=== PATIENT | male | born 1985 | race Caucasian/White ===

== ENCOUNTER → 2016-10-19 | Outpatient (REF) | payer OTHER | END | disposition home or self-care (01) | LOC: M LAB REF 13:07 | PROVIDERS: ATTEND Internal Medicine | DX: E83.110 Hereditary hemochromatosis (principal) ==

== ENCOUNTER → 2017-10-24 | Outpatient (REF) | payer OTHER ==
[2017-10-24 14:44] LABS: IRON (FE) 115 UG/DL (65-175); PERCENT SATURATION 49.6 % (19.7-50.0); TOTAL IRON BINDING CAPACITY 232 UG/DL (250-450)
== END ==
LOC: M LAB REF 13:45
DX: Z14.8 Genetic carrier of other disease (principal); Z00.01 Encounter for general adult medical examination with abnormal findings

== ENCOUNTER → 2018-10-10 | Outpatient (REF) | payer OTHER ==
[2018-10-10 12:52] LABS: PERCENT SATURATION 47.5 % (19.7-50.0)
== END ==
LOC: M LAB REF 12:10
PROVIDERS: ATTEND Internal Medicine
DX: E83.110 Hereditary hemochromatosis (principal)

== ENCOUNTER → 2019-10-09 | Outpatient (REF) | payer OTHER ==
[2019-10-09 12:58] LABS: PERCENT SATURATION 36.7 % (19.7-50.0)
== END ==
LOC: M LAB REF 11:54
PROVIDERS: ATTEND Internal Medicine
DX: E83.110 Hereditary hemochromatosis (principal)

== ENCOUNTER → 2020-10-17 | Outpatient (REF) | payer OTHER ==
[2020-10-17 13:34] LABS: PERCENT SATURATION 55.1 % (19.7-50.0)
== END ==
LOC: M LAB REF 12:36
PROVIDERS: ATTEND Internal Medicine
DX: E83.110 Hereditary hemochromatosis (principal)

== ENCOUNTER → 2021-11-30 | Outpatient (REF) | payer OTHER ==
[2021-11-30 14:24] LABS: PERCENT SATURATION 66.5 % (19.7-50.0)
== END ==
LOC: M LAB REF 12:18
PROVIDERS: ATTEND Internal Medicine
DX: E83.110 Hereditary hemochromatosis (principal)

== ENCOUNTER → 2022-11-30 | Outpatient (REF) | payer OTHER ==
[2022-11-30 13:00] LABS: PERCENT SATURATION 34.8 % (19.7-50.0)
[2022-11-30 13:02] LABS: FERRITIN 385.2 NG/ML (10.5-307.3)
== END ==
LOC: M LAB REF 12:04
PROVIDERS: ATTEND Internal Medicine
DX: E83.110 Hereditary hemochromatosis (principal)

== ENCOUNTER 2022-12-06 08:50 | Outpatient (CLI) | payer OTHER ==
[~2022-12-06] VITALS: Ht 182.9 cm; Wt 84.1 kg
[2022-12-06 09:17] VITALS: BP 128/82
[2022-12-06 09:29] LABS: HEMATOCRIT 44.8 % (42.0-52.0); HEMOGLOBIN 14.7 g/dl (13.5-17.5); MEAN CORPUSCULAR HEMOGLOBIN 30.4 pg (27.0-33.0); MEAN CORPUSCULAR HGB CONC 32.8 g/dl (32.0-36.5); MEAN CORPUSCULAR VOLUME 92.6 fl (80.0-96.0); PLATELET COUNT, AUTOMATED 177 10^3/uL (150-450); RED BLOOD COUNT 4.84 10^6/uL (4.30-6.10); WHITE BLOOD COUNT 5.3 10^3/uL (4.0-10.0)
[2022-12-06 10:00] VITALS: BP 120/76
== END 2022-12-06 09:15 | disposition home or self-care (01) ==
LOC: M INFU 08:50
PROVIDERS: ATTEND Internal Medicine
DX: E83.119 Hemochromatosis, unspecified (principal)

== ENCOUNTER → 2023-08-19 | Outpatient (CLI) | payer OTHER ==
[2023-08-19 11:14] LABS: HEMATOCRIT 45.9 % (42.0-52.0); HEMOGLOBIN 15.4 g/dl (13.5-17.5); MEAN CORPUSCULAR HEMOGLOBIN 30.9 pg (27.0-33.0); MEAN CORPUSCULAR HGB CONC 33.6 g/dl (32.0-36.5); MEAN CORPUSCULAR VOLUME 92.2 fl (80.0-96.0); PLATELET COUNT, AUTOMATED 192 10^3/uL (150-450); RED BLOOD COUNT 4.98 10^6/uL (4.30-6.10); WHITE BLOOD COUNT 5.8 10^3/uL (4.0-10.0)
[2023-08-19 12:04] LABS: ALBUMIN 4.1 G/DL (3.2-5.2); BILIRUBIN,DIRECT 0.2 MG/DL (<0.4); BILIRUBIN,TOTAL 0.9 MG/DL (0.3-1.2); FERRITIN 450.3 NG/ML (10.5-307.3); PERCENT SATURATION 34.6 % (19.7-50.0)
== END ==
LOC: M WUC 08:26
PROVIDERS: ATTEND Internal Medicine Gastroenterology
DX: R79.89 Other specified abnormal findings of blood chemistry (principal); Z14.8 Genetic carrier of other disease

== ENCOUNTER → 2023-10-21 | Outpatient (REF) | payer OTHER | LOC: M LAB REF 12:45 | PROVIDERS: ATTEND Internal Medicine | DX: E83.110 Hereditary hemochromatosis (principal) ==

== ENCOUNTER → 2023-11-21 | Outpatient (CLI) | payer OTHER ==
[~2023-11-21] VITALS: Ht 185.4 cm; Wt 81.8 kg
[2023-11-21 07:56] VITALS: BP 169/88; O2SAT 98
[2023-11-21 07:59] LABS: HEMATOCRIT 45.2 % (42.0-52.0); HEMOGLOBIN 15.3 g/dl (13.5-17.5); MEAN CORPUSCULAR HEMOGLOBIN 30.5 pg (27.0-33.0); MEAN CORPUSCULAR HGB CONC 33.8 g/dl (32.0-36.5); PLATELET COUNT, AUTOMATED 234 10^3/uL (150-450); RED BLOOD COUNT 5.02 10^6/uL (4.30-6.10); WHITE BLOOD COUNT 6.3 10^3/uL (4.0-10.0)
[2023-11-21 08:40] VITALS: BP 134/77; O2SAT 98
== END ==
LOC: M INFU 07:33
PROVIDERS: ATTEND Internal Medicine
DX: E83.119 Hemochromatosis, unspecified (principal)

== ENCOUNTER 2023-11-28 07:40 | Outpatient (CLI) | payer OTHER ==
[~2023-11-28] VITALS: Ht 182.9 cm; Wt 94.5 kg
[2023-11-28 07:52] LABS: HEMATOCRIT 42.2 % (42.0-52.0); HEMOGLOBIN 14.4 g/dl (13.5-17.5); MEAN CORPUSCULAR HEMOGLOBIN 31.1 pg (27.0-33.0); MEAN CORPUSCULAR HGB CONC 34.1 g/dl (32.0-36.5); MEAN CORPUSCULAR VOLUME 91.1 fl (80.0-96.0); PLATELET COUNT, AUTOMATED 216 10^3/uL (150-450); RED BLOOD COUNT 4.63 10^6/uL (4.30-6.10); WHITE BLOOD COUNT 5.5 10^3/uL (4.0-10.0)
[2023-11-28 07:54] VITALS: BP 140/78; O2SAT 98
[2023-11-28 08:20] VITALS: BP 127/76; O2SAT 97
== END 2023-11-28 08:15 ==
LOC: M INFU 07:40
PROVIDERS: ATTEND Internal Medicine
DX: E83.110 Hereditary hemochromatosis (principal)

== ENCOUNTER 2023-12-05 07:30 | Outpatient (CLI) | payer OTHER ==
[~2023-12-05] VITALS: Ht 185.4 cm; Wt 82.0 kg
[2023-12-05 07:39] VITALS: BP 160/87; O2SAT 98
[2023-12-05 07:48] LABS: HEMATOCRIT 41.2 % (42.0-52.0); MEAN CORPUSCULAR HEMOGLOBIN 31.4 pg (27.0-33.0); MEAN CORPUSCULAR VOLUME 92.4 fl (80.0-96.0); PLATELET COUNT, AUTOMATED 230 10^3/uL (150-450); RED BLOOD COUNT 4.46 10^6/uL (4.30-6.10); WHITE BLOOD COUNT 5.4 10^3/uL (4.0-10.0)
[2023-12-05 08:25] VITALS: BP 104/59; O2SAT 97
== END 2023-12-05 08:25 | disposition home or self-care (01) ==
LOC: M INFU 07:30
PROVIDERS: ATTEND Internal Medicine
DX: E83.110 Hereditary hemochromatosis (principal)

== ENCOUNTER → 2023-12-06 | Outpatient (REF) | payer OTHER ==
[2023-12-06 12:14] LABS: PERCENT SATURATION 22.1 % (19.7-50.0)
[2023-12-06 12:18] LABS: FERRITIN 260.3 NG/ML (10.5-307.3)
== END ==
LOC: M LAB REF 11:25
PROVIDERS: ATTEND Internal Medicine
DX: E83.110 Hereditary hemochromatosis (principal)

== ENCOUNTER 2023-12-12 07:16 | Outpatient (CLI) | payer OTHER ==
[~2023-12-12] VITALS: Ht 182.9 cm; Wt 84.1 kg
[2023-12-12 07:16] VITALS: BP 144/76; O2SAT 97
[2023-12-12 07:19] LABS: HEMATOCRIT 40.7 % (42.0-52.0); HEMOGLOBIN 13.6 g/dl (13.5-17.5); MEAN CORPUSCULAR HEMOGLOBIN 31.2 pg (27.0-33.0); MEAN CORPUSCULAR HGB CONC 33.4 g/dl (32.0-36.5); MEAN CORPUSCULAR VOLUME 93.3 fl (80.0-96.0); PLATELET COUNT, AUTOMATED 177 10^3/uL (150-450); RED BLOOD COUNT 4.36 10^6/uL (4.30-6.10); WHITE BLOOD COUNT 4.6 10^3/uL (4.0-10.0)
[2023-12-12 08:00] VITALS: BP 133/81; O2SAT 97
== END 2023-12-12 08:00 | disposition home or self-care (01) ==
LOC: M INFU 07:16
PROVIDERS: ATTEND Internal Medicine
DX: E83.110 Hereditary hemochromatosis (principal)

== ENCOUNTER → 2023-12-19 | Outpatient (REF) | payer OTHER | LOC: M LAB REF 11:49 | PROVIDERS: ATTEND Internal Medicine | DX: E83.110 Hereditary hemochromatosis (principal) ==

== ENCOUNTER → 2024-03-13 | Outpatient (REF) | payer OTHER ==
[2024-03-13 12:35] LABS: PERCENT SATURATION 27.5 % (19.7-50.0)
[2024-03-13 12:37] LABS: FERRITIN 186.1 NG/ML (10.5-307.3)
== END ==
LOC: M LAB REF 12:00
PROVIDERS: ATTEND Internal Medicine
DX: E83.110 Hereditary hemochromatosis (principal); R79.89 Other specified abnormal findings of blood chemistry

== ENCOUNTER → 2024-06-10 | Outpatient (REF) | payer OTHER ==
[2024-06-10 13:43] LABS: PERCENT SATURATION 34.2 % (19.7-50.0)
[2024-06-10 13:47] LABS: FERRITIN 320.2 NG/ML (10.5-307.3)
== END ==
LOC: M LAB REF 12:58
PROVIDERS: ATTEND Internal Medicine
DX: E83.110 Hereditary hemochromatosis (principal)

== ENCOUNTER → 2024-08-12 | Outpatient (REF) | payer OTHER ==
[2024-08-12 13:09] LABS: PERCENT SATURATION 58.8 % (19.7-50.0)
[2024-08-12 13:11] LABS: FERRITIN 313.3 NG/ML (10.5-307.3)
== END ==
LOC: M LAB REF 12:17
PROVIDERS: ATTEND Internal Medicine
DX: E83.110 Hereditary hemochromatosis (principal)

== ENCOUNTER → 2024-12-10 | Outpatient (REF) | payer OTHER ==
[2024-12-10 13:00] LABS: PERCENT SATURATION 53.6 % (19.7-50.0)
[2024-12-10 13:02] LABS: FERRITIN 265.8 NG/ML (10.5-307.3)
== END ==
LOC: M LAB REF 12:12
PROVIDERS: ATTEND Internal Medicine
DX: E83.110 Hereditary hemochromatosis (principal)

== ENCOUNTER → 2025-06-15 | Outpatient (REF) | payer OTHER | LOC: M LAB REF 12:05 | PROVIDERS: ATTEND Internal Medicine | DX: E83.110 Hereditary hemochromatosis (principal) ==

== ENCOUNTER → 2025-08-26 | Outpatient (REF) | payer OTHER | LOC: M LAB REF 12:23 | PROVIDERS: ATTEND Internal Medicine | DX: E83.110 Hereditary hemochromatosis (principal) ==